=== PATIENT | male | born 1970 | race Caucasian/White ===

== ENCOUNTER 2016-10-07 15:19 | Emergency (ER) | payer OTHER ==
--- NOTE | 2016-10-07 16:37 | RAD ---
WRIST- LEFT 3 VIEWS COMPARISON: None. HISTORY: While lifting a rock today, patient heard a popping voids in his left wrist. It feels like it is broken. Past history of scaphoid fracture. FINDINGS: Views: Left wrist PA, oblique, and lateral. Bones: There is a internal fixation screw in the scaphoid. On the oblique view, a nondisplaced fracture line is seen through the waist of the scaphoid. Carpal bone alignment: Normal. Joint spacing: Normal Soft tissues: Normal IMPRESSION: 1. Status post internal fixation of a scaphoid fracture. On the oblique view, there is a fracture still present in the waist of the scaphoid, without evidence of osteonecrosis or malalignment. Differential diagnosis includes residual fracture line from remote injury, versus a new injury. This would require obtaining prior radiographs for comparison.
[2016-10-07] MEDS ORDERED: ACETAMINOPHEN 325 MG TABLET ONE (16:45)
[2016-10-07] MEDS ORDERED: IBUPROFEN 600 MG TABLET ONE (16:45)
== END 2016-10-07 17:51 | disposition home or self-care (01) ==
LOC: ED 15:19
DX: S62.002A Unspecified fracture of navicular [scaphoid] bone of left wrist, initial encounter for closed fracture (principal); F17.210 Nicotine dependence, cigarettes, uncomplicated; X50.0XXA Overexertion from strenuous movement or load, initial encounter; Y92.9 Unspecified place or not applicable
CPT/HCPCS: 73110; 99283 ×2; 29125; A9270 ×2